=== PATIENT | female | born 1975 | race Caucasian/White ===

== ENCOUNTER 2020-08-11 18:00 | Inpatient (IN) | payer MEDICAID ==
[~2020-08-11] VITALS: Ht 172.7 cm; Wt 81.8 kg
--- NOTE | ~2020-08-11 | EEG ---
PATIENT:MARISSA CARDENAS MEDICAL RECORD: [id number] DATE OF : 73 LOCATION:D.222 D.MS ADMISSION DATE: 08/11/20 REFERRING PHYSICIAN: INTERPRETING PHYSICIAN: LINO PHELAN MD DATE OF SERVICE: 08/13/2020 DATE OF EE08/13/2020 ROOM NUMBER: 2222 ORDERED BY: Dr. Phelan. CASE HISTORY: A 45-year-old female admitted with report of 2 generalized seizures. Medication includes Keppra. Further history of bipolar disorder and schizophrenia. PROCEDURE: EEG done as a routine bedside portable recording using the standard 10-20 international electrode system. A 16 channel was used with 17th as EKG. Photic stimulation was done as activation procedure, the patient deferred HV. DESCRIPTION OF PROCEDURE: EEG opens with the patient awake with a record displaying only fair organization of background with diffuse background mild slowing primarily in the 6-7 Hz range, occasionally better organized in the 7-8 Hz range. Later in the record, the patient transitioned in and out of drowsiness and possibly brief stage I sleep. Frequent bilateral independent single theta slow waves as well as frequent bilateral independent single delta slow waves were seen in the record. Has occasional complex of moderately high voltage diffuse non-rhythmic theta and delta slowing was seen. No epileptiform changes such as spike, polyspike or spike and wave was seen. Photic stimulation did not yield a significant driving response nor was a photomyogenic or photoparoxysmal response seen. IMPRESSION: Mild to moderately abnormal EEG with diffuse background slowing would suggest diffuse cortical dysfunction. This might be seen in the case of static encephalopathy or degenerative process. We can also see background slowing accompanying psychiatric illness. No evidence of seizure disorder was found in this recording. TRANSINT:[id number] Voice Confirmation ID: [id number] DOCUMENT ID: [id number] LINO PHELAN MD CC: [id number] DICTATION DATE: 08/13/20 1743 ACCESS DEVELOPER: 08/14/20 0855 ADM IN [id number] [place] [address]
--- NOTE | 2020-08-11 18:19 | NUR ---
URINE SAMPLE OBTAINED AND SENT TO LAB
[2020-08-11 18:26] LABS: HCG URINE NEGATIVE (NEGATIVE)
[2020-08-11 18:27] LABS: BILIRUBIN NEGATIVE (NEGATIVE); KETONE SMALL mg/dL (NEGATIVE); NITRITE NEGATIVE (NEGATIVE); UROBILINOGEN NORMAL mg/dL (< 2)
[2020-08-11 18:28] LABS: BACTERIA FEW HPF (NONE SEEN); WHITE CELLS - URINE 0-5 HPF (0-4)
[2020-08-11 18:29] LABS: AMORPHOUS SEDIMENT MANY LPF (NONE SEEN)
[2020-08-11 18:32] LABS: UDS - AMPHET NEGATIVE QUAL (NEGATIVE); UDS - BARB NEGATIVE QUAL (NEGATIVE); UDS - BENZO POSITIVE QUAL (NEGATIVE); UDS - COCAINE NEGATIVE QUAL (NEGATIVE); UDS - OPIATE NEGATIVE QUAL (NEGATIVE); UDS - PCP NEGATIVE QUAL (NEGATIVE); UDS - THC POSITIVE QUAL (NEGATIVE)
--- NOTE | 2020-08-11 18:37 | NUR ---
MATA, DAUGHTER, UPDATED ON PATIENT STATUS, CELL # [phone]
[2020-08-11 18:46] LABS: BASOPHILS 0.1 % (0-2); EOSINOPHILS 0 % (0-7); HEMATOCRIT 49.1 % (36.0-48.0); HEMOGLOBIN 16.6 g/dL (12-16); IMMATURE GRANULOCYTES 0.5 % (0-5); LYMPHOCYTE ABS# 0.72 10x3/uL (1.18-3.74); LYMPHOCYTES 6.3 % (15-50); MCH 30.6 pg (26.0-34.0); MCHC 33.8 g/dL (31.0-37.0); MCV 90.6 fL (80.0-100.0); MEAN PLATELET VOLUME 9.9 fL (7.4-10.4); MONOCYTES 1.9 % (2-11); NEUTROPHIL ABS# 10.37 10x3/uL (1.56-6.13); NEUTROPHILS 91.2 % (40-80); PLATELET COUNT 217 10x3/uL (130-400); RBC 5.42 10x6/uL (4.00-5.40); RDW 14.3 % (11.5-14.5); WBC 11.4 10x3/uL (4.8-10.8)
[2020-08-11 18:50] LABS: INR 1.01 (0.85-1.17); PROTIME 12.3 SECONDS (11.6-15.0)
[2020-08-11 18:50] LABS: ANION GAP 15.8 mmol/L (8-16); CALCIUM 8.9 mg/dL (8.5-10.1); CARBON DIOXIDE 24.5 mmol/L (21.0-32.0); CREATININE - SERUM 1.1 mg/dL (0.6-1.3); POTASSIUM - SERUM 4.3 mmol/L (3.5-5.1)
[2020-08-11 18:57] LABS: ALBUMIN 3.5 g/dL (3.4-5.0); BILIRUBIN - TOTAL 0.3 mg/dL (0.2-1.3); MAGNESIUM - SERUM 1.8 mg/dL (1.8-2.4)
[2020-08-11 19:07] LABS: CKMB 1.7 U/L (0.0-3.6); CREATINE KINASE 215 UL (21-215); MAGNESIUM - SERUM 1.9 mg/dL (1.8-2.4); THYROID STIMULATING HORMONE 1.83 uIU/mL (0.36-3.74); TROPONIN-I < 0.017 ng/mL (0.000-0.060)
--- NOTE | 2020-08-11 19:29 | NUR ---
PER Christina WATSON, PATIENT WAS AGGRESSIVE, COMBATIVE AND THEN MEDICATED BY EMS. PATIENT IS CURRENTLY UNABLE TO ANSWER ANY QUESTIONS AND CANNOT CONSENT TO MISSY WITH A GFR OF 57. TOLD TO TRY AGAIN TOMORROW. CHANGED THE DATE ON THE MRI REQUEST UNTIL 08-12-2020.
[2020-08-11 20:33] VITALS: BP 115/69
--- NOTE | 2020-08-11 21:10 | NUR ---
PATIENT STATED THAT SHE WAS NAUSEATED. GAVE ZOFRAN PER ORDER. PATIENT SLEEPING AT THIS TIME WITH LIGHTS DIMMED FOR COMFORT. BED RAILS UP X2, NAD NOTED.
--- NOTE | 2020-08-11 21:39 | NUR ---
PATIENT ACCIDENTALLY DC'D IV. NURSE IN ROOM FOR IV STAERT
[2020-08-11 22:00] VITALS: BP 110/68
--- NOTE | 2020-08-11 22:34 | NUR ---
REC'D PATIENT FROM ER TO ROOM 2222. PATIENT IS LETHARGIC AT THIS TIME. COMPLETED ADMISSION WITH SOME DIFFICULTY RELATED TO PATIENT'S LETHARGIC STATE. PATIENT DENIES NEEDS AT THIS TIME. BED IN LOWEST POSITION, CALL LIGHT IN REACH, AND BED ALARM ON. ENCOURAGED PATIENT TO CALL WITH NEEDS.
[2020-08-11 22:41] VITALS: BP 157/86; Ht 172.7 cm; Wt 81.8 kg
--- NOTE | 2020-08-12 03:41 | NUR ---
TELE 82 SR
[2020-08-12 05:13] VITALS: BP 148/93
[2020-08-12 07:53] LABS: BASOPHILS 0.1 % (0-2); EOSINOPHILS 0 % (0-7); HEMATOCRIT 45.6 % (36.0-48.0); HEMOGLOBIN 15.3 g/dL (12-16); IMMATURE GRANULOCYTES 0.3 % (0-5); LYMPHOCYTE ABS# 1.65 10x3/uL (1.18-3.74); LYMPHOCYTES 11.7 % (15-50); MCH 30.2 pg (26.0-34.0); MCHC 33.6 g/dL (31.0-37.0); MCV 90.1 fL (80.0-100.0); MEAN PLATELET VOLUME 9.5 fL (7.4-10.4); MONOCYTES 5.3 % (2-11); NEUTROPHIL ABS# 11.65 10x3/uL (1.56-6.13); NEUTROPHILS 82.6 % (40-80); PLATELET COUNT 215 10x3/uL (130-400); RBC 5.06 10x6/uL (4.00-5.40); RDW 14.6 % (11.5-14.5); WBC 14.1 10x3/uL (4.8-10.8)
--- NOTE | 2020-08-12 07:59 | NUR ---
PATIENT AWAKE AND ALERT THIS MORNING, STATES SHE DOES NOT REMEMBER ANYTHING THAT HAPPENED. PATIENT IS WANTING TO EAT AND DRINK, HAVE ORDERS FOR NPO WILL CONTINUE WITH PLAN OF CARE
[2020-08-12 08:05] LABS: ALBUMIN 3.1 g/dL (3.4-5.0); ANION GAP 10.9 mmol/L (8-16); BILIRUBIN - TOTAL 0.34 mg/dL (0.2-1.3); CALCIUM 8.5 mg/dL (8.5-10.1); PHOSPHOROUS 3.2 mg/dL (2.5-4.9); POTASSIUM - SERUM 3.9 mmol/L (3.5-5.1); PROTEIN - SERUM 6.6 g/dL (6.4-8.2); THYROID STIMULATING HORMONE 0.77 uIU/mL (0.36-3.74)
[2020-08-12 08:15] LABS: CREATININE - SERUM 0.9 mg/dL (0.6-1.3)
[2020-08-12 08:35] VITALS: BP 104/70
--- NOTE | 2020-08-12 09:58 | NUR ---
PATIENT ON CL, C/O HEADACHE, PATIENT HAS TYLENOL SUPP ON AUG, EFUSED STATED SHE WILL WAIT FOR NURSE PRACTITIONER TO MAKE ROUNDS. CONTINUE WITH PLAN OF CARE
--- NOTE | 2020-08-12 12:41 | NUR ---
PATIENT IS WITHOUT DISTRESS.MONITOR
[2020-08-12 17:19] VITALS: BP 136/62
[2020-08-12 20:00] VITALS: BP 139/77
--- NOTE | 2020-08-12 20:00 | NUR ---
PT SITTING UP ON SIDE OF BED AT THIS TIME, SIGNIFICANT OTHER AT BEDSIDE. REQUESTED TO GO WALKING AROUND UNIT, ENCOURAGED PT TO WALK JUST PLACE MASK ON. PT DENIES OTHER NEEDS AT THIS TIME.
[2020-08-13] VITALS: BP 119/77
[2020-08-13 04:00] VITALS: BP 145/86
--- NOTE | 2020-08-13 06:00 | NUR ---
CALLED CHRIS ROTH THAT PT WAS STILL THROWING UP AND DRY HEAVING AFTER ZOFRAN. CHIRS STATES TO GIVEN ANOTHER DOSE OF ZOFRAN NOW. ALSO ORDER FOR TYLENOL 500MG Q4HP PO
[2020-08-13 06:50] LABS: BASOPHILS 0.3 % (0-2); EOSINOPHILS 0.4 % (0-7); HEMATOCRIT 45.9 % (36.0-48.0); IMMATURE GRANULOCYTES 0.4 % (0-5); LYMPHOCYTE ABS# 1.27 10x3/uL (1.18-3.74); LYMPHOCYTES 13.3 % (15-50); MCHC 32.7 g/dL (31.0-37.0); MCV 91.8 fL (80.0-100.0); MEAN PLATELET VOLUME 9.4 fL (7.4-10.4); MONOCYTES 6.8 % (2-11); NEUTROPHIL ABS# 7.54 10x3/uL (1.56-6.13); NEUTROPHILS 78.8 % (40-80); PLATELET COUNT 194 10x3/uL (130-400); RDW 14.6 % (11.5-14.5)
[2020-08-13 06:56] LABS: WBC 9.6 10x3/uL (4.8-10.8)
[2020-08-13 07:04] LABS: CALC OSMOLALITY 279 mosm/kg (275-300); CALCIUM 8.4 mg/dL (8.5-10.1); CARBON DIOXIDE 28.1 mmol/L (21.0-32.0); CHLORIDE - SERUM 102 mmol/L (98-107); CREATININE - SERUM 0.8 mg/dL (0.6-1.3); GLUCOSE 131 mg/dL (74-106); MAGNESIUM - SERUM 1.9 mg/dL (1.8-2.4); PHOSPHOROUS 2.3 mg/dL (2.5-4.9); POTASSIUM - SERUM 3.6 mmol/L (3.5-5.1); SODIUM 139 mmol/L (136-145); UREA NITROGEN 12 mg/dL (7-18); eGFR NON AFRICAN AMERICAN 82 mL/min (90-120)
--- NOTE | 2020-08-13 08:10 | NUR ---
PATIENT STATES SHE IS VERY NAUSEOUS, BP IS ELEVATED THIS MORNING, PATIENT HAVING EEG DONE AT THIS TIME. CONTINUE WITH PLAN OF CARE, PATIENT IV IN LEFT HAND PT C/O BEING SORE, WILL RESITE
[2020-08-13 09:28] VITALS: BP 196/94
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
--- NOTE | 2020-08-13 11:26 | NUR ---
PATIENT LAYING ON SIDE IN BED STATES SHE DOES NOT WANT TO USE I/S RIGHT NOW STOMACH IS HURTING HER AND SHE IS NAUSEOUS. STARTED ZOFRAN DRIP. CONTINUE WITH PLAN OF CARE
[2020-08-13 12:37] VITALS: BP 155/91
[2020-08-13 17:27] VITALS: BP 194/93
--- NOTE | 2020-08-13 17:41 | NUR ---
EMPLOYEES AT [employer] CALLED HOSPITAL TO INFORM PATIENT OUTSIDE SMOKING. EDUCATED PATIENT AGAIN ON RISKS AND DANGERS OF SMOKING WHILE WEARING PATCH AND JUST BEING OUTSIDE WHERE WE ARE UNABLE TO MONITOR HER IF SHE SHOULD HAVE ANOTHER SEIZURE. PATIENT VERBALIZED UNDERSTANDING OF RISKS AND STATED SHE WILL NOT GO OUTSIDE AGAIN, CONTINUE WITH PLAN OF CARE
--- NOTE | 2020-08-13 19:22 | NUR ---
HAS REMAINED WITHOUT NEEDS TODAY. CONT PLAN OF CARE
[2020-08-13 20:00] VITALS: BP 154/81
--- NOTE | 2020-08-13 20:00 | NUR ---
PT TAKING SHOWER AT THIS TIME. LINENS CHANGED. DENIED NEEDS
--- NOTE | 2020-08-13 22:30 | NUR ---
PT REQUESTED ZOFRAN DRIP BE TURNED OFF AT THIS TIME STATING SHE WANTS TO SEE IF SHE WILL STILL BE NAUSEOUS WITHOUT IT SO SHE CAN GO HOME TOMORROW IF SHE IS FEELING BETTER. ZOFRAN DRIP STOPPED
[2020-08-14] VITALS: BP 120/69
[2020-08-14 04:00] VITALS: BP 143/62
[2020-08-14 06:46] LABS: BASOPHILS 0.3 % (0-2); EOSINOPHILS 0.8 % (0-7); HEMATOCRIT 42.2 % (36.0-48.0); HEMOGLOBIN 13.8 g/dL (12-16); IMMATURE GRANULOCYTES 0.2 % (0-5); LYMPHOCYTE ABS# 1.99 10x3/uL (1.18-3.74); LYMPHOCYTES 21.4 % (15-50); MCH 29.7 pg (26.0-34.0); MCHC 32.7 g/dL (31.0-37.0); MCV 90.8 fL (80.0-100.0); MEAN PLATELET VOLUME 9.4 fL (7.4-10.4); MONOCYTES 6.2 % (2-11); NEUTROPHIL ABS# 6.62 10x3/uL (1.56-6.13); NEUTROPHILS 71.1 % (40-80); PLATELET COUNT 188 10x3/uL (130-400); RBC 4.65 10x6/uL (4.00-5.40); RDW 14.3 % (11.5-14.5); WBC 9.3 10x3/uL (4.8-10.8)
[2020-08-14 06:55] LABS: ANION GAP 10.9 mmol/L (8-16); CALCIUM 8.2 mg/dL (8.5-10.1); CARBON DIOXIDE 26.4 mmol/L (21.0-32.0); CREATININE - SERUM 0.9 mg/dL (0.6-1.3); MAGNESIUM - SERUM 1.9 mg/dL (1.8-2.4); PHOSPHOROUS 2.7 mg/dL (2.5-4.9); POTASSIUM - SERUM 3.3 mmol/L (3.5-5.1)
--- NOTE | 2020-08-14 07:20 | NUR ---
PATIENT IV LEAKING, STOPPED IV FOR NOW PATIENT IS READY TO BE DC HOME. CHANGED IV PROTONIX TO PO. CONTINUE WITH PLAN OF CARE
[2020-08-14 07:56] VITALS: BP 149/94
[2020-08-14] MEDS ORDERED: CELEXA40 MG PO (09:23)
[2020-08-14] MEDS ORDERED: CYCLOBENZAPRINE10 MG PO (09:23)
[2020-08-14] MEDS ORDERED: ZESTRIL10 MG PO (09:24)
[2020-08-14] MEDS ORDERED: KEPPRA1000 MG PO (09:54)
--- NOTE | 2020-08-14 11:27 | NUR ---
I have reviewed this patient and I concur with the Shift Assessment completed by the Licensed Practical Nurse today this shift.
--- NOTE | 2020-08-14 12:27 | NUR ---
PATIENT DC HOME, WENT OVER DC PAPERWORK AND FOLLOW UP APPOINTMENTS WITH PATIENT. ALL QUESTIONS ANSWERED, IV DC WITH CATHETER INTACT.
== END 2020-08-14 12:28 | disposition home or self-care (01) | DRG 100 ==
LOC: D.ER 18:00 → D.MS 22:13
PROVIDERS: Family Medicine; ADMIT Emergency Medicine; ATTEND Emergency Medicine
DX: R56.9 Unspecified convulsions (principal); G93.41 Metabolic encephalopathy; Z72.0 Tobacco use; F20.9 Schizophrenia, unspecified

== ENCOUNTER 2020-09-15 10:45 | Emergency (ER) | payer MEDICAID ==
[~2020-09-15] VITALS: Ht 172.7 cm; Wt 87.0 kg
[~2020-09-15 10:45] MED LIST: CELEXA40 MG PO; CYCLOBENZAPRINE10 MG PO; KEPPRA1000 MG PO; ZESTRIL10 MG PO
[2020-09-15 11:04] VITALS: Ht 172.7 cm; Wt 87.0 kg
[2020-09-15 13:38] VITALS: BP 136/89
== END 2020-09-15 13:59 | disposition home or self-care (01) ==
LOC: D.ER 10:45
DX: S63.501A Unspecified sprain of right wrist, initial encounter (principal); E11.9 Type 2 diabetes mellitus without complications; Y04.0XXA Assault by unarmed brawl or fight, initial encounter; Y93.9 Activity, unspecified; Y92.9 Unspecified place or not applicable